=== PATIENT | female | born 1955 | race African-American/Black ===

== ENCOUNTER 2024-07-17 00:32 | Inpatient (IN) | payer OTHER ==
[~2024-07-17] VITALS: Ht 170.2 cm; Wt 90.7 kg
[2024-07-17] MEDS: ACETAMINOPHEN 1000MG/100ML 100 ML IV ONE (01:06)
[2024-07-17] MEDS: MORPHINE SULFATE 4 MG/ML INJ (FOR IV/IM USE) IV ONE ×2 (02:54→04:26)
[2024-07-17 03:05] LABS: BASOPHILS % 0.6 % (0.0-2.0); EOSINOPHILS % 0.5 % (0.0-5.0); HEMATOCRIT. 38.1 % (36.0-48.0); HEMOGLOBIN. 12.6 g/dL (12.0-16.0); LYMPHOCYTES % 15.6 % (20.0-50.0); MEAN CORPUSCULAR HEMOGLOBIN 29.9 pg (28.0-32.0); MEAN CORPUSCULAR HGB CONC 33.1 g/dL (31.0-37.0); MEAN CORPUSCULAR VOLUME 90.4 fL (81.0-99.0); MEAN PLATELET VOLUME 8.5 fl (7.4-10.4); MONOCYTES % 5.4 % (2.0-8.0); NEUTROPHILS % 77.9 % (40.0-76.0); PLATELET 228 x1000/uL (130-400); RED BLOOD CELL COUNT 4.22 mill/uL (4.2-5.4); RED CELL DISTRIBUTION WIDTH 13.9 % (11.6-14.6); WHITE BLOOD COUNT 7.9 x1000/uL (4.5-11.0)
[2024-07-17 03:18] LABS: CHLORIDE 105 mEq/L (98-107); SODIUM 139 mEq/L (136-145)
[2024-07-17 03:19] LABS: CALCIUM 9.2 mg/dL (8.7-10.4); CARBON DIOXIDE 27 mEq/L (21-32)
[2024-07-17 03:24] LABS: CREATININE 0.8 mg/dL (0.6-1.0); GLUCOSE 231 mg/dL (70-105); UREA NITROGEN BLOOD 16 mg/dL (9-23)
[2024-07-17] MEDS ORDERED: HYDROMORPHONE HCL/PF 2MG/ML INJ IV PRN (07:00)
[2024-07-17] MEDS ORDERED: NALOXONE HCL 0.4MG/ML VIAL IV PRN (07:45)
[2024-07-17] MEDS: HYDROMORPHONE HCL/PF 1MG/ML INJ IV PRN (08:06)
[2024-07-17 11:30] VITALS: BP 150/66; PULSE 68; RESP 18; TEMP 36.33624; O2SAT 97
[2024-07-17 12:00] VITALS: BP 147/70; PULSE 77; RESP 18; TEMP 36.83628; O2SAT 94
[2024-07-17] MEDS: BLOOD SUGAR DIAGNOSTIC STRIP TEST SCH (12:33)
[2024-07-17 16:00] VITALS: BP 169/67; PULSE 71; RESP 16; TEMP 36.6696; O2SAT 97
[2024-07-17] MEDS ORDERED: DEXTROSE 50% WATER 50ML SYRINGE IV PRN (17:45)
[2024-07-17] MEDS: INSULIN LISPRO 100 UNITS/ML SUBCUT SCH (18:45)
[2024-07-17] MEDS: DEXT 5%/0.9% NACL 1,000 ML IV SCH (18:50)
[2024-07-17 20:05] VITALS: BP 159/58; PULSE 74; RESP 18; TEMP 36.50292; O2SAT 94
[2024-07-17] MEDS: PANTOPRAZOLE SODIUM 40 MG/VIAL IV SCH (21:14)
[2024-07-17 22:55] VITALS: BP 167/68; PULSE 77; RESP 20; TEMP 36.50292; O2SAT 96
[2024-07-18 04:30] VITALS: BP 178/76; PULSE 84; RESP 18; TEMP 36.72516; O2SAT 100
[2024-07-18] MEDS: MORPHINE SULFATE 2 MG/ML INJ (NOT FOR IM USE) IV PRN (05:18)
[2024-07-18 16:00] VITALS: BP 153/61; PULSE 80; RESP 20; TEMP 36.72516; O2SAT 97
[2024-07-18 20:00] VITALS: BP 161/68; PULSE 78; RESP 18; TEMP 38.11416; O2SAT 97
[2024-07-19] VITALS: BP 153/72; PULSE 81; RESP 18; TEMP 38.6142; O2SAT 97
[2024-07-19] MEDS: ACETAMINOPHEN 325MG TABLET PO PRN (03:21)
[2024-07-19 04:00] VITALS: BP 158/63; PULSE 83; RESP 18; TEMP 37.503; O2SAT 97
[2024-07-19 08:00] VITALS: BP 154/67; PULSE 85; RESP 18; TEMP 37.33632; O2SAT 97
[2024-07-19 12:00] VITALS: BP 164/72; PULSE 81; RESP 18; TEMP 37.00296; O2SAT 98
[2024-07-19] MEDS ORDERED: HYDR-4001 MT (15:04)
[2024-07-19 16:00] VITALS: BP 155/64; PULSE 82; RESP 17; TEMP 36.22512; O2SAT 98
[2024-07-19] MEDS ORDERED: ACETAMINOPHEN 325MG TABLET PO PRN (19:30)
[2024-07-19 20:00] VITALS: BP 175/89; PULSE 84; RESP 19; TEMP 36.50292
[2024-07-19] MEDS: CLONIDINE 0.1MG TABLET PO PRN (21:18)
[2024-07-20] VITALS (8 sets, daily range): BP systolic 136–160; BP diastolic 62–82; PULSE 73–92; RESP 18–20; TEMP 36.28068–38.2528; O2SAT 95–100
[2024-07-21] VITALS: BP 171/78; PULSE 75; RESP 20; TEMP 37.503; O2SAT 95
[2024-07-21 04:00] VITALS: BP 158/77; PULSE 78; RESP 20; TEMP 36.61404; O2SAT 95
[2024-07-21 08:00] VITALS: BP 162/70; PULSE 77; RESP 20; TEMP 37.16964; O2SAT 96
[2024-07-21 12:00] VITALS: BP 167/57; PULSE 74; RESP 19; TEMP 36.72516; O2SAT 97
[2024-07-21 16:00] VITALS: BP 166/88; PULSE 79; RESP 17; TEMP 37.16964; O2SAT 98
[2024-07-21] MEDS ORDERED: BISACODYL 10MG SUPP PR NR (16:15)
[2024-07-22] VITALS: BP 154/78; PULSE 71; RESP 20; TEMP 35.61396; O2SAT 95
[2024-07-22 04:00] VITALS: BP 152/68; PULSE 75; RESP 20; TEMP 35.61396; O2SAT 96
[2024-07-22 08:00] VITALS: BP 147/65; PULSE 81; RESP 20; TEMP 36.16956; O2SAT 97
[2024-07-22] MEDS: POLYETHYLENE GLYCOL 3350 (17GM) 1 DOSE PACK PO SCH (09:00)
[2024-07-22 12:00] VITALS: BP 145/67; PULSE 81; RESP 19; TEMP 36.16956; O2SAT 98
[2024-07-22] MEDS: MORPHINE SULFATE 2 MG/ML INJ (NOT FOR IM USE) IV PRN (12:42)
[2024-07-22] MEDS: BACLOFEN 10MG TABLET PO PRN (12:43)
[2024-07-22] MEDS ORDERED: NALOXONE HCL 0.4MG/ML VIAL IV PRN (12:45)
[2024-07-22 16:00] VITALS: BP 148/74; PULSE 79; RESP 19; TEMP 36.22512; O2SAT 98
[2024-07-22] MEDS: ENOXAPARIN 30MG/0.3ML SYR SUBCUT SCH (16:46)
[2024-07-22 20:00] VITALS: BP 154/74; PULSE 75; RESP 18; TEMP 37.11408; O2SAT 98
[2024-07-23] VITALS: BP 142/72; PULSE 78; RESP 18; TEMP 37.39188; O2SAT 100
[2024-07-23 04:00] VITALS: BP 122/56; PULSE 74; RESP 18; TEMP 36.72516; O2SAT 100
[2024-07-23 08:00] VITALS: BP 153/71; PULSE 72; RESP 19; TEMP 36.22512; O2SAT 98
[2024-07-23] MEDS ORDERED: ENOXAPARIN 40MG/0.4ML SYR SUBCUT SCH (09:00)
[2024-07-23 12:00] VITALS: BP 140/59; PULSE 78; RESP 19; TEMP 36.50292; O2SAT 97
[2024-07-23 16:00] VITALS: BP 145/72; PULSE 76; RESP 19; TEMP 36.3918; O2SAT 98
[2024-07-23 20:00] VITALS: BP 149/74; PULSE 81; RESP 20; TEMP 36.50292; O2SAT 100
[2024-07-24] VITALS: BP 150/72; PULSE 72; RESP 20; TEMP 36.50292; O2SAT 97
[2024-07-24 04:00] VITALS: BP 129/52; PULSE 77; RESP 20; TEMP 35.89176; O2SAT 100
[2024-07-24 08:00] VITALS: BP 145/60; PULSE 71; RESP 17; TEMP 37.7808; O2SAT 97
[2024-07-24 12:00] VITALS: BP 142/62; PULSE 77; RESP 18; TEMP 36.05844; O2SAT 99
[2024-07-24] MEDS ORDERED: LACTULOSE 20G/30ML UDC PO SCH (14:04)
[2024-07-24 16:00] VITALS: BP 137/62; PULSE 68; RESP 19; TEMP 36.44736; O2SAT 98
[2024-07-24 20:00] VITALS: BP 143/62; PULSE 78; TEMP 36.72516; O2SAT 99
[2024-07-25] VITALS: BP 146/73; PULSE 84; RESP 18; TEMP 36.55848; O2SAT 98
[2024-07-25 04:00] VITALS: BP 138/78; PULSE 68; RESP 18; TEMP 36.50292; O2SAT 99
[2024-07-25 08:00] VITALS: BP 126/63; PULSE 75; RESP 18; TEMP 36.05844; O2SAT 99
[2024-07-25 12:00] VITALS: BP 157/81; PULSE 77; RESP 17; TEMP 36.05844; O2SAT 98
[2024-07-25 16:00] VITALS: BP 150/65; PULSE 97; RESP 18; TEMP 36.114; O2SAT 98
[2024-07-25] MEDS: INFLUENZA VACCINE 05/PF 0.5 ML SYRINGE IM ONE (16:39)
[2024-07-25 20:00] VITALS: BP 136/53; PULSE 77; RESP 19; TEMP 35.72508; O2SAT 98
[2024-07-26] VITALS: BP 139/71; PULSE 67; RESP 19; TEMP 35.8362; O2SAT 100
[2024-07-26 04:00] VITALS: BP 140/64; PULSE 78; RESP 19; TEMP 35.89176; O2SAT 98
[2024-07-26 20:00] VITALS: BP 126/62; PULSE 82; RESP 18; TEMP 35.66952; O2SAT 97
[2024-07-27] VITALS: BP 130/72; PULSE 79; RESP 18; TEMP 36.78072; O2SAT 96
[2024-07-27 04:00] VITALS: BP 152/67; PULSE 79; RESP 18; TEMP 37.00296; O2SAT 99
[2024-07-27 08:00] VITALS: BP 120/54; PULSE 61; RESP 19; TEMP 36.61404; O2SAT 97
[2024-07-27 12:00] VITALS: BP 142/74; PULSE 61; RESP 18; TEMP 36.61404; O2SAT 95
[2024-07-27 16:00] VITALS: BP 140/59; PULSE 81; RESP 18; TEMP 36.61404; O2SAT 95
[2024-07-27 20:00] VITALS: BP 118/71; PULSE 66; RESP 19; TEMP 35.89176; O2SAT 95
[2024-07-28] VITALS (7 sets, daily range): BP systolic 122–155; BP diastolic 54–80; PULSE 60–94; RESP 18–19; TEMP 36.16956–36.6696; O2SAT 95–100
[2024-07-28] MEDS ORDERED: GABA-529 MT (12:50)
[2024-07-28] MEDS ORDERED: BACL-141 PO (12:50)
[2024-07-29] VITALS: BP 118/64; PULSE 75; RESP 19; TEMP 36.55848; O2SAT 99
[2024-07-29 04:00] VITALS: BP 117/63; PULSE 71; RESP 19; TEMP 36.114; O2SAT 98
[2024-07-29 08:00] VITALS: BP 140/63; PULSE 76; RESP 20; TEMP 36.3918; O2SAT 97
[2024-07-29 12:00] VITALS: BP 132/69; PULSE 66; RESP 20; TEMP 36.33624; O2SAT 100
[2024-07-29 16:00] VITALS: BP 141/85; PULSE 82; RESP 18; TEMP 36.3918; TEMP 36.39180; O2SAT 99
== END 2024-07-29 19:00 | disposition home or self-care (01) | DRG 552 ==
LOC: ER 00:32 → 5WST 04:04 → 6EST 07-20 21:15
PROVIDERS: ADMIT Internal Medicine; ATTEND Internal Medicine
DX: S12.691A Other nondisplaced fracture of seventh cervical vertebra, initial encounter for closed fracture (principal); K59.2 Neurogenic bowel, not elsewhere classified; E11.9 Type 2 diabetes mellitus without complications; M48.02 Spinal stenosis, cervical region; R20.0 Anesthesia of skin; R20.2 Paresthesia of skin; N31.9 Neuromuscular dysfunction of bladder, unspecified; R13.10 Dysphagia, unspecified; S50.02XA Contusion of left elbow, initial encounter; M50.30 Other cervical disc degeneration, unspecified cervical region; I10 Essential (primary) hypertension; Z79.4 Long term (current) use of insulin; W06.XXXA Fall from bed, initial encounter; Y93.89 Activity, other specified; Y92.003 Bedroom of unspecified non-institutional (private) residence as the place of occurrence of the external cause; Y99.8 Other external cause status
CPT/HCPCS: 36415; 71045; 72141; 73080; 73200; 80048; 82962; 83036; 85025; 92610; 93970; 97116; 97162; 97166; 97530; 97535; 99285; A4606; J1171; J1650; J1815; J2270; J2470; J7042; L0172; J0131